=== PATIENT | female | born 1950 | race Hispanic/Latino ===

== ENCOUNTER 2020-12-15 14:26 | Inpatient (IN) | payer SELFPAY ==
[~2020-12-15 14:26] MED LIST: Iopamidol-370 76% 500 ML 1 ML ONE
[2020-12-15 15:01] LABS: #Basophils 0.1 thou/uL (0.0-0.2); #Lymphocytes 1.7 thou/uL (1.20-3.40); #Monocytes 0.7 thou/uL (0.11-0.59); #Neutrophils 6.1 thou/uL (1.40-6.50); %Basophils 0.7 % (0.0-1.0); %Eosinophils 0.3 % (0.0-10.0); %Lymphocytes 19.4 % (21.0-51.0); %Monocytes 8.6 % (0.0-10.0); Hemoglobin 13.3 g/dL (12.0-16.0); Mean Corpuscular HGB CONC 33.8 g/dL (32.0-36.0); Mean Corpuscular Hemoglobin 32.8 pg (27.0-31.0); Mean Corpuscular Volume 97.1 fL (78.0-98.0); Mean Platelet Volume 9.4 fL (7.4-10.4); Platelet Count 233 thou/uL (130-400); RBC Distribution Width 13.4 % (11.5-14.5); Red Blood Cell (RBC) Count 4.05 mill/uL (4.20-5.40); White Blood Cell (WBC) Count 8.6 thou/uL (4.8-10.8)
[2020-12-15 15:22] LABS: ALT (SGPT) 92 U/L (8-55); AST (SGOT) 158 U/L (5-34); Albumin 2.6 g/dL (3.4-4.8); Alkaline Phosphatase 578 U/L (40-110); Anion Gap 14 mmol/L (10-20); BUN (Urea Nitrogen) 10 mg/dL (9.8-20.1); Calc. Creatinine Clearance 0 mL/min (70-130); Calcium 8.5 mg/dL (7.8-10.44); Carbon Dioxide 21 mmol/L (23-31); Chloride 104 mmol/L (98-107); Globulin 3.2 g/dL (2.4-3.5); Glucose 150 mg/dL (80-115); Protein, Total 5.8 g/dL (5.8-8.1); Sodium 137 mmol/L (136-145)
[2020-12-15 15:28] LABS: Potassium 2.1 mmol/L (3.5-5.1)
[2020-12-15 15:31] LABS: Bilirubin, Total 27.1 mg/dL (0.2-1.2)
[2020-12-15 15:33] LABS: Bilirubin, Direct Greater than 10.0 mg/dL (0.1-0.3)
[2020-12-15] MEDS ORDERED: Potassium Chloride 20 MEQ TAB ONE (16:12)
[2020-12-15 17:39] LABS: INR-International Normal Ratio 2.1; PTT 44.2 sec (22.9-36.1); Prothrombin Time 24.1 sec (12.0-14.7)
[2020-12-15] MEDS ORDERED: Electrolyte Replacement Protocol 1 EACH FS SCH (17:45)
[2020-12-15] MEDS ORDERED: Electrolyte Replacement Protocol FS PRN (19:00)
[2020-12-15] MEDS: Sodium Chloride 0.9% 1,000 ML IV SCH (19:55)
[2020-12-15 22:29] LABS: Magnesium 1.7 mg/dL (1.6-2.6)
[2020-12-15 22:33] LABS: Potassium 2.5 mmol/L (3.5-5.1)
[2020-12-15] MEDS ORDERED: Magnesium 2 GM/50 ML 2 GM in Premix Bag 1 BAG IVPB SCH (23:00)
[2020-12-15] MEDS: Potassium Chloride 20 MEQ TAB PO SCH (23:16)
[2020-12-15 23:50] VITALS: BMI 22.5
[2020-12-16 02:47] LABS: SARS-CoV-2 NAA Rapid Test Not Detected (NotDetected)
[2020-12-16] MEDS: Potassium Chloride 20 MEQ TAB PO SCH (03:06)
[2020-12-16 06:32] LABS: #Basophils 0.1 thou/uL (0.0-0.2); #Lymphocytes 1.5 thou/uL (1.20-3.40); #Monocytes 0.8 thou/uL (0.11-0.59); #Neutrophils 4.4 thou/uL (1.40-6.50); %Basophils 0.7 % (0.0-1.0); %Eosinophils 0.7 % (0.0-10.0); %Lymphocytes 22.2 % (21.0-51.0); %Monocytes 11.5 % (0.0-10.0); %Neutrophils 64.9 % (42.0-75.0); Hemoglobin 11.7 g/dL (12.0-16.0); Mean Corpuscular HGB CONC 34.1 g/dL (32.0-36.0); Mean Corpuscular Hemoglobin 33.4 pg (27.0-31.0); Mean Platelet Volume 9.6 fL (7.4-10.4); Platelet Count 196 thou/uL (130-400); RBC Distribution Width 13.4 % (11.5-14.5); White Blood Cell (WBC) Count 6.8 thou/uL (4.8-10.8)
[2020-12-16 06:51] LABS: ALT (SGPT) 73 U/L (8-55); AST (SGOT) 131 U/L (5-34); Albumin 2.1 g/dL (3.4-4.8); Alkaline Phosphatase 454 U/L (40-110); Anion Gap 10 mmol/L (10-20); BUN (Urea Nitrogen) 7 mg/dL (9.8-20.1); Bilirubin, Total 21.2 mg/dL (0.2-1.2); Calc. Creatinine Clearance 85 mL/min (70-130); Calcium 7.9 mg/dL (7.8-10.44); Carbon Dioxide 18 mmol/L (23-31); Chloride 113 mmol/L (98-107); Globulin 2.9 g/dL (2.4-3.5); Glucose 74 mg/dL (80-115); Magnesium 2.4 mg/dL (1.6-2.6); Potassium 3.3 mmol/L (3.5-5.1); Sodium 138 mmol/L (136-145)
[2020-12-16] MEDS ORDERED: Potassium Chloride 20 MEQ in Premix Bag 1 BAG IVPB SCH (08:00)
[2020-12-16] MEDS: Sodium Chloride 0.9% 1,000 ML IV SCH ×2 (09:28→20:29)
[2020-12-16] MEDS ORDERED: Iothalamate Meglumine 60% 50 ML VIAL FS ONE ×2 (13:05→13:26)
[2020-12-16] MEDS ORDERED: Indomethacin 50 MG SUPP ONE (13:06)
[2020-12-16] MEDS ORDERED: Famotidine/PF 20 mg/2ml Vial ONE (13:18)
[2020-12-16] MEDS ORDERED: Fentanyl 100 MCG/2 ML VIAL ONE (13:18)
[2020-12-16] MEDS ORDERED: PROPOFOL 200 MG/20 ML VIAL ONE (13:24)
[2020-12-16] MEDS ORDERED: Metoclopramide HCl 10 MG/2 ML VIAL ONE (13:24)
[2020-12-16] MEDS ORDERED: Lidocaine 1% PF 5 ML VIAL ONE (13:24)
[2020-12-16] MEDS ORDERED: Succinylcholine 200 MG/10 ml SYRINGE FS ONE (13:24)
[2020-12-16] MEDS ORDERED: Ondansetron PF 4 MG/2 ML Vial ONE (13:24)
[2020-12-16] MEDS ORDERED: PHENYLEPHRINE-NS 100 MCG/ML 10 ML SYRINGE ONE (13:24)
[2020-12-16] MEDS ORDERED: ePHEDrine Sulfate 50 MG/10 ML VIAL ONE (13:24)
[2020-12-16] MEDS ORDERED: Ondansetron HCl/PF 4 MG/2 ML Vial IVP PRN (14:16)
[2020-12-16] MEDS ORDERED: Promethazine HCl 25 MG/ML VIAL SLOW IVP PRN (14:16)
[2020-12-16] MEDS ORDERED: Promethazine HCl 25 MG/ML VIAL IM PRN (14:16)
[2020-12-16] MEDS ORDERED: Phytonadione 10 MG/ML AMP SC SCH (14:30)
[2020-12-16] MEDS ORDERED: Potassium Chloride 20 MEQ TAB PO SCH (16:15)
[2020-12-16] MEDS: Piperacillin/Tazobactam 3.375 GM in Sodium Chloride 0.9% 100 ML IVPB SCH (17:06)
[2020-12-17] MEDS: Piperacillin/Tazobactam 3.375 GM in Sodium Chloride 0.9% 100 ML IVPB SCH ×5 (00:23→22:59)
[2020-12-17 06:18] LABS: #Basophils 0.1 thou/uL (0.0-0.2); #Eosinphils 0.1 thou/uL (0.0-0.7); #Lymphocytes 1.2 thou/uL (1.20-3.40); #Monocytes 0.5 thou/uL (0.11-0.59); #Neutrophils 6.2 thou/uL (1.40-6.50); %Basophils 0.7 % (0.0-1.0); %Lymphocytes 14.4 % (21.0-51.0); %Monocytes 6.7 % (0.0-10.0); %Neutrophils 77.2 % (42.0-75.0); Hemoglobin 10.9 g/dL (12.0-16.0); Mean Corpuscular HGB CONC 33.3 g/dL (32.0-36.0); Mean Corpuscular Hemoglobin 33.2 pg (27.0-31.0); Mean Corpuscular Volume 99.7 fL (78.0-98.0); Mean Platelet Volume 9.7 fL (7.4-10.4); Platelet Count 191 thou/uL (130-400); RBC Distribution Width 13.5 % (11.5-14.5); Red Blood Cell (RBC) Count 3.28 mill/uL (4.20-5.40)
[2020-12-17 06:23] LABS: INR-International Normal Ratio 1.3; Prothrombin Time 16.2 sec (12.0-14.7)
[2020-12-17] MEDS: Sodium Chloride 0.9% 1,000 ML IV SCH ×2 (06:30→22:59)
[2020-12-17 07:00] LABS: Anion Gap 12 mmol/L (10-20); BUN (Urea Nitrogen) 7 mg/dL (9.8-20.1); Calc. Creatinine Clearance 87 mL/min (70-130); Calcium 7.7 mg/dL (7.8-10.44); Carbon Dioxide 15 mmol/L (23-31); Chloride 116 mmol/L (98-107); Glucose 85 mg/dL (80-115); Potassium 4.4 mmol/L (3.5-5.1); Sodium 139 mmol/L (136-145)
[2020-12-17] MEDS ORDERED: Phytonadione 10 MG/ML AMP PO SCH (09:00)
[2020-12-17] MEDS: Phytonadione 5 MG TAB PO SCH (09:46)
[2020-12-18] MEDS: Piperacillin/Tazobactam 3.375 GM in Sodium Chloride 0.9% 100 ML IVPB SCH ×4 (05:05→23:21)
[2020-12-18] MEDS: Phytonadione 5 MG TAB PO SCH (08:39)
[2020-12-18] MEDS: Sodium Chloride 0.9% 1,000 ML IV SCH (12:25)
[2020-12-19] MEDS: Sodium Chloride 0.9% 1,000 ML IV SCH (02:42)
[2020-12-19] MEDS: Piperacillin/Tazobactam 3.375 GM in Sodium Chloride 0.9% 100 ML IVPB SCH ×4 (05:02→23:59)
[2020-12-19 06:03] LABS: PTT 35.5 sec (22.9-36.1); Prothrombin Time 13.2 sec (12.0-14.7)
[2020-12-19 06:16] LABS: #Basophils 0.1 thou/uL (0.0-0.2); #Eosinphils 0.1 thou/uL (0.0-0.7); #Lymphocytes 2.2 thou/uL (1.20-3.40); #Monocytes 0.8 thou/uL (0.11-0.59); #Neutrophils 5.7 thou/uL (1.40-6.50); %Eosinophils 1.4 % (0.0-10.0); %Lymphocytes 24.6 % (21.0-51.0); %Monocytes 9.2 % (0.0-10.0); %Neutrophils 63.8 % (42.0-75.0); ALT (SGPT) 64 U/L (8-55); AST (SGOT) 98 U/L (5-34); Alkaline Phosphatase 390 U/L (40-110); Anion Gap 11 mmol/L (10-20); BUN (Urea Nitrogen) 6 mg/dL (9.8-20.1); Band 3 % (5-11); Bilirubin, Total 23.4 mg/dL (0.2-1.2); Calc. Creatinine Clearance 76 mL/min (70-130); Calcium 7.9 mg/dL (7.8-10.44); Carbon Dioxide 20 mmol/L (23-31); Chloride 110 mmol/L (98-107); Globulin 2.8 g/dL (2.4-3.5); Glucose 89 mg/dL (80-115); Hypochromia SLIGHT = 6-15 cells (100X) (0-5/hpf); Lymphocytes 19 % (21-51); MDiff Complete? YES; Mean Corpuscular HGB CONC 33.7 g/dL (32.0-36.0); Mean Corpuscular Volume 98.1 fL (78.0-98.0); Mean Platelet Volume 9.2 fL (7.4-10.4); Monocytes 6 % (0-10); Neutrophil 71 % (42-75); Platelet Count 198 thou/uL (130-400); Platelet Morphology Comment Appears Adequate; Protein, Total 4.8 g/dL (5.8-8.1); RBC Distribution Width 13.5 % (11.5-14.5); Reactive Lymphocytes 1 % (0-10); Red Blood Cell (RBC) Count 3.34 mill/uL (4.20-5.40); Sodium 138 mmol/L (136-145); White Blood Cell (WBC) Count 8.9 thou/uL (4.8-10.8)
[2020-12-19 06:20] LABS: Potassium 2.5 mmol/L (3.5-5.1)
[2020-12-19] MEDS: Potassium Chloride 40 MEQ in Sodium Chloride 0.9% 250 ML 250 ML IVPB SCH ×2 (06:51→12:39)
[2020-12-19] MEDS: Phytonadione 5 MG TAB PO SCH (08:18)
[2020-12-20] MEDS: Piperacillin/Tazobactam 3.375 GM in Sodium Chloride 0.9% 100 ML IVPB SCH ×3 (05:07→17:40)
[2020-12-20 06:56] LABS: ALT (SGPT) 60 U/L (8-55); AST (SGOT) 89 U/L (5-34); Albumin 2.2 g/dL (3.4-4.8); Alkaline Phosphatase 389 U/L (40-110); Anion Gap 10 mmol/L (10-20); BUN (Urea Nitrogen) 5 mg/dL (9.8-20.1); Calc. Creatinine Clearance 76 mL/min (70-130); Carbon Dioxide 23 mmol/L (23-31); Chloride 109 mmol/L (98-107); Globulin 2.7 g/dL (2.4-3.5); Glucose 87 mg/dL (80-115); Protein, Total 4.9 g/dL (5.8-8.1); Sodium 139 mmol/L (136-145)
[2020-12-20 07:00] LABS: Potassium 2.8 mmol/L (3.5-5.1)
[2020-12-20] MEDS: Potassium Chloride 20 MEQ in Premix Bag 1 BAG IVPB SCH ×4 (08:11→18:16)
[2020-12-20] MEDS ORDERED: Midazolam HCl 2 mg/2 ml Vial ONE (10:08)
[2020-12-20] MEDS ORDERED: Ketamine 50 MG/ML (10ML VIAL) ONE (10:08)
[2020-12-20] MEDS ORDERED: PROPOFOL 200 MG/20 ML VIAL ONE (10:49)
[2020-12-20 13:46] LABS: RBC Count-Automated (BF) 33913 /cu.mm; WBC/Nucleated-Auto (BF) 121 uL
[2020-12-20 13:48] LABS: BF Color Red; Clarity Cloudy/Turbid (Clear)
[2020-12-20 14:09] LABS: BF Segmented Neutrophils 85 %; Cell Count Non Hematic 10 %; Lymphocytes 5 %
[2020-12-21] MEDS: Piperacillin/Tazobactam 3.375 GM in Sodium Chloride 0.9% 100 ML IVPB SCH ×2 (00:17→04:51)
[2020-12-21 06:58] VITALS: TEMP 97.4
[2020-12-21 07:04] LABS: ALT (SGPT) 67 U/L (8-55); AST (SGOT) 111 U/L (5-34); Albumin 2.1 g/dL (3.4-4.8); Alkaline Phosphatase 398 U/L (40-110); Anion Gap 10 mmol/L (10-20); BUN (Urea Nitrogen) 9 mg/dL (9.8-20.1); Bilirubin, Total 18.4 mg/dL (0.2-1.2); Calc. Creatinine Clearance 67 mL/min (70-130); Calcium 8.2 mg/dL (7.8-10.44); Carbon Dioxide 22 mmol/L (23-31); Chloride 108 mmol/L (98-107); Globulin 2.9 g/dL (2.4-3.5); Glucose 88 mg/dL (80-115); Potassium 3.4 mmol/L (3.5-5.1); Sodium 137 mmol/L (136-145)
[2020-12-21] MEDS ORDERED: Potassium Chloride 20 MEQ in Premix Bag 1 BAG IVPB SCH (09:00)
[2020-12-21] MEDS ORDERED: Potassium Chloride 20 MEQ TAB PO SCH (10:15)
[2020-12-21 12:51] VITALS: BP 114/73
== END 2020-12-21 12:56 | disposition home or self-care (01) | DRG 435 ==
LOC: ERS 14:26 → T4-A 16:55
PROVIDERS: ADMIT Internal Medicine; ATTEND Internal Medicine
PROC: 0F993ZZ Drainage of Common Bile Duct, Percutaneous Approach (ICD-10-PCS; principal; 2020-12-20)
PROC: BF101ZZ Fluoroscopy of Bile Ducts using Low Osmolar Contrast (ICD-10-PCS; 2020-12-20)
DX: C25.0 Malignant neoplasm of head of pancreas (principal); K83.1 Obstruction of bile duct; D68.9 Coagulation defect, unspecified; E44.0 Moderate protein-calorie malnutrition; Z20.822 Contact with and (suspected) exposure to COVID-19; E87.6 Hypokalemia; D64.9 Anemia, unspecified; N88.8 Other specified noninflammatory disorders of cervix uteri; Z90.49 Acquired absence of other specified parts of digestive tract; Z68.22 Body mass index [BMI] 22.0-22.9, adult
CPT/HCPCS: 36415; 47531; 47533; 74177; 74330; 76000; 76705; 76856; 80048; 80053; 82247; 83735; 83880; 85025; 85060; 85610; 85730; 86301; 87070; 87205; 89051; 93005; J1610; J2250; J2405; J2543; J2704; J2765; J3010; J3430; J3475; J3480; J3490; J7050; Q9961; Q9967; S0028; U0002; U0003; U0005

== ENCOUNTER 2020-12-22 07:55 | Emergency (ER) | payer SELFPAY | END 2020-12-22 08:47 | disposition home or self-care (01) | LOC: ERS 07:55 | DX: T85.590A Other mechanical complication of bile duct prosthesis, initial encounter (principal) | CPT/HCPCS: 99283 ==